=== PATIENT | male | born 1975 | race Caucasian/White ===

== ENCOUNTER → 2016-12-27 | Outpatient (CLI) | payer OTHER ==
--- NOTE | ~2016-12-27 | EXE ---
[facility] [address] [place] [address] STRESS ECHOCARDIOGRAM Name: ORTEGAJESÚS R Room #: REG [facility]#: [id number] Admission: 12/27/16 Attend Phys: Adam Pereira Discharge: Date of : 79 Date of Service: 12/27/16 1035 Report #: [id number] THIS REPORT FOR: //name// APPROVED REPORT Exam: Stress Echocardiogram Indication: Pericardial pain. HTN Patient Location: Out-Patient Stress Nurse: Madison Cho RN Status: routine Ht: 5 ft 11 in HR: 75 bpm BP: 140/86 mmHg Medical History Medications: Lisinopril Allergies: No known drug allergies Cardiac Risk Factors: HTN, Obesity Procedure The patient underwent an Exercise Stress Test using the Galileo Protocol. Blood pressure, heart rate, and EKG were monitored. An Echocardiogram was performed by stress test technician in four stages in quad fashion. At peak stress, four selected images were obtained and placed side by side with resting images for comparison. Stress Test Details Stress Test: Exercise stress testing was performed using a Galileo protocol. HR Resting HR: 75 bpm Max Heart Rate (APMHR): 181 bpm Max HR Achieved: 155 bpm Target HR (85% APMHR): 153 bpm % of APMHR: 85 Recovery HR: 78 bpm HR response to stress: Normal HR response to stress BP Resting BP: 140/86 mmHg Max BP: 186/90 mmHg Recovery BP: 136/72 mmHg ECG Resting ECG: Sinus Rhythm Stress ECG: Sinus Tachycardia Arrhythmia: None [facility] [address] [place] [address] STRESS ECHOCARDIOGRAM Name: JESÚS ORTEGA [facility] #[facility] [id number] Admission: 12/27/16 Attend Phys: Adam Pereira Discharge: Date of : 79 Date of Service: 12/27/16 1035 Report #: [id number] Recovery ECG: Sinus Rhythm Clinical Reason for Termination: Moderate to severe fatigue Stress Symptoms: Dyspnea Exercise duration: 10 min sec Highest Stage Achieved: Stage 4: 4.2 mph at 16% grade. Exercise capacity: 13.4 METs Arturo heart rate of 181bpm not achieved. Stress ECG Conclusion 1. SUBJECTIVELY NEGATIVE FOR ISCHEMIA 2. ELECTROCARDIOGRAPHICALLY NEGATIVE FOR ISCHEMIA 3. SATISFACTORY FUNCTIONAL CAPACITY Pre-Stress Echo The resting Echocardiogram showed normal left ventricular contractility with an estimated Ejection Fraction of about 55-60%. Mild MR, mild TR. Mild basal LVH noted. Post-Stress Echo The stress Echocardiogram showed normal left ventricular contractility with an estimated Ejection Fraction of about 70%. Clinical No clinical or ECG evidence for ischemia. Conclusion Clinical Response: Non-ischemic Exercise Capacity: Superior Stress ECG Response: Non-ischemic Stress Echo Images: Non-ischemic 1. LOW RISK STUDY Other Information Study Quality: Adequate <Conclusion> 1. LOW RISK STUDY <ELECTRONICALLY SIGNED> By: Ben Hannah MD 12/27/16 1035 1035 1035 Ben Hannah MD /INF
== END ==
LOC: CV 08:52
DX: I10 Essential (primary) hypertension (principal); R07.2 Precordial pain